=== PATIENT | female | born 1985 | race Caucasian/White ===

== ENCOUNTER 2019-06-07 10:39 | Outpatient (CLI) | payer OTHER, SELFPAY ==
--- NOTE | ~2019-06-07 | XR_ITS ---
XR knee LT 3V DATE: 06/07/2019 10:58 INDICATION: Left knee pain, no trauma. TECHNIQUE: 3 views COMPARISON: None FINDINGS: Mild to moderate suprapatellar knee joint effusion is suggested. No fracture or dislocation , periosteal reaction or bone destruction is evident. The knee joint spaces are preserved. No radiopa que intra-articular loose body or chondrocalcinosis. IMPRESSION: Knee joint effusion Reviewed, dictated and finalized at location B. A SAMPLER IMPRESSION: Knee joint effusion
== END 2019-06-07 10:40 | disposition home or self-care (01) ==
LOC: ANHIMG 10:44
PROVIDERS: PCP Physician Assistant; Visit Provider Physician Assistant
DX: M25.462 Effusion, left knee (principal)
CPT/HCPCS: 73562

== ENCOUNTER 2019-06-10 10:50 | Outpatient (CLI) | payer OTHER, SELFPAY ==
--- NOTE | ~2019-06-10 | MR_ITS ---
EXAMINATION: MR knee LT wo con DATE: 06/10/2019 11:39 INDICATION: Left knee pain. TECHNIQUE: Magnetic resonance imaging (MRI) of the left knee was performed without intravenous contra st. Sequences included axial PD-weighted FS FSE, coronal PD-weighted FSE and PD-weighted FS FSE, sagi ttal PD-weighted FSE, and sagittal T2-weighted FS FSE. COMPARISON: Left knee radiographs 06/07/2019 FINDINGS: Medial compartment: Medial meniscus is normal. There is shallow partial-thickness cartilage loss of femoral condyle invol ving the central and lateral articular surface. There is cartilage surface regularity of tibial condy le. Lateral compartment: Lateral meniscus is normal. Lateral compartment cartilage is normal. Patellofemoral compartment: There is shallow partial-thickness cartilage loss of patellar medial facet, median ridge, and lateral facet. Trochlear cartilage is normal. Ligaments and tendons: Anterior and posterior cruciate ligaments are normal. Medial collateral ligament is intact. There are changes of prior sprain of fibular collateral ligament characterized by thickening and increased sig nal intensity proximally. There is mild patellar tendinopathy. Fluid: There is a small knee joint effusion. There is trace fluid in a Gloria's cyst. There is mild superfici al infrapatellar bursitis. IMPRESSION: 1. Mild chondrosis of medial and patellofemoral compartments. 2. Small knee joint effusion. Reviewed, dictated and finalized at location A. [employer] ASSURANCE GROUP LEADER
== END 2019-06-10 10:51 | disposition home or self-care (01) ==
PROVIDERS: PCP Physician Assistant; Visit Provider Physician Assistant
DX: M25.562 Pain in left knee (principal); M22.2X2 Patellofemoral disorders, left knee; M25.462 Effusion, left knee
CPT/HCPCS: 73721

== ENCOUNTER 2019-07-06 08:56 | Outpatient (RCR) | payer OTHER, SELFPAY ==
--- NOTE | 2019-07-06 10:02 | PTOPEVAL ---
PHYSICAL THERAPY EVALUATION AND PLAN OF CARE 07-06-2019 The PT evaluation was completed for L knee patella-femoral chondromalacia and the plan of treatment is 1-2 x/week for 5 weeks. Thank you for referring Yaquelin to [facility]. Please review, sign, date and return this plan of care [facility]. I agree with and certify that the following plan of care is medically necessary. Referring Physician Date Attending Provider: Dieter Mora MD *PT Outpatient Evaluation Start: 07/06/19 09:08 Document 07/06/19 09:05 CLEM (Rec: 07/06/19 10:00 CLEM [email or web address]) Neurological History Hx Neurological Disorders No Significant History Cardiovascular History Hx Cardiac Disorders No Significant History Respiratory History Hx Respiratory Disorders No Significant History Gastrointestinal History Hx Other Gastrointestinal Disorders Yes: gall bladder removed Genitourinary History Hx Genitourinary Disorders No Significant History Musculoskeletal History Hx Other Musculoskeletal Disorders Yes: sprained ankle L;L knee sprain as child;L hip pain~1 yr ago Endocrine History Hx Endocrine Disorders No Significant History HEENT History Hx HEENT Disorders No Significant History Reproductive History Hx Tubal Ligation Yes Hx Other Reproductive Disorders Yes: 3 c sections Evaluation Information Problem Diagnosis L knee patella femoral chondromalacia Onset Jun 05, 2019 Subjective Information woke up in morning, knee Query Text:As Reported By Patient/ swollen,could not bend it or Family put wt on it; rested knee, wore velcro strap brace, saw dr, had x ray and MRI, saw ortho dr; pain is less, moving better; went snow skiing last week with knee brace; Diagnostic Tests X-Rays For This Problem Yes MRI For This Problem Yes-mild infrapatellar bursitis,lig intact, chondromalacia of patella Previous Treatments Previous Treatments For This Problem no PT for knee Prior Level of Function Activity Level (Last 3 Months) Occupation RN at hospital, labor/excavator, wear lead vest, move pt;no restrictions for work Activity of Daily Living Ability Independent Indoor/Home Mobility Independent Community Mobility Independent Stairs Ability Independent Functional Cognition (Planning, Shopping Independent , Taking Medications) Cooking Yes Cleaning Yes Laundry
--- NOTE | 2019-07-13 14:02 | PCPTNOTE ---
Patient did not show up for scheduled appointment this date.
--- NOTE | 2019-07-20 09:38 | PCPTNOTE ---
Patient did not show up for scheduled appointment this date voicemail left 07/20/2019 at 9:38am reminding patient about next appointment and if needing to reschedule to call facility.
--- NOTE | 2019-07-27 09:34 | PCPTNOTE ---
Patient did not show up for scheduled appointment this date. Notified PT on patient's third no show per attendance policy.
--- NOTE | 2019-07-27 15:57 | PCPTNOTE ---
called pt and left her a voice message at [phone]: to inform her that PT canceled 2 appointments due to her not showing for treatment. And for her to call if any questions/concerns.
--- NOTE | 2019-08-03 15:46 | PCPTNOTE ---
PHYSICAL THERAPY DISCHARGE 08-03-2019 Attending Provider: Dieter Mora MD Patient:Yaquelin Laird Date of :1985 Ms. Laird has not returned for any further treatments since the initial PT evaluation on 07/06/2019, for the diagnosis of L patella femoral pain. She did not show for 3 scheduled appointments, therefore she will be discharged at this time. The goals were not addressed. Thank you for referring Yaquelin to [facility]. Please review, sign, date and return this discharge summary [facility]. I have been updated about the patient's current status and I agree with discharge from the above service at this time. Referring Physician Date
== END 2019-08-04 08:43 | disposition home or self-care (01) ==
LOC: ANHPT 08:56
PROVIDERS: PCP Physician Assistant; Visit Provider Orthopaedic Surgery
DX: M22.42 Chondromalacia patellae, left knee (principal)
CPT/HCPCS: 97110; 97161

== ENCOUNTER 2022-03-27 19:18 | Emergency (ER) | payer BC, SELFPAY ==
--- NOTE | ~2022-03-27 | XR_ITS ---
XR foot RT min 3V 03/27/2022 19:40 INDICATION: Right foot pain PROCEDURE: 4 views right foot COMPARISON: No prior studies for comparison. FINDINGS: Fracture, dislocation or subluxation is not identified. Lisfranc joint intact. The soft tis sues appear within normal limits. No foreign bodies are identified. IMPRESSION: 1: NO ACUTE BONE OR JOINT ABNORMALITY IDENTIFIED. Reviewed, dictated and finalized at location A. BUSINESS INTELLIGENCE CONSULTANT
[2022-03-27 19:29] VITALS: BP 148/94; PULSE 81; RESP 18; TEMP 36.2; O2SAT 100
--- NOTE | 2022-03-27 19:52 | ED.LOWEXIN ---
HPI - Extremity Injury (Lower) General Chief Complaint: Extremity Injury, Lower Stated Complaint: Rt Foot Pain Source: patient Mode of arrival: ambulatory History of Present Illness HPI Narrative: This is a 36-year-old female who presented to our urgent care with complaints of pain to her right 4th and 5th toe status post trauma. According to patient she was playing with her dogs his stump 3rd toe. Patient notes that her toe has discoloration and she has pain with movement. The patient denies SOB, CP, palpitation, extremity numbness, lightheadedness, dizziness, constipation, diarrhea, chills, or fever, negative for neurovascular deficiency, pedal pulses present, and capillary refill within normal limit, Related Data Allergies Allergy/AdvReac Type Severity Reaction Status Date / Time nickel Allergy Mild rash Verified 03/27/22 19:29 Review of Systems Review of Systems: A 14 organ system Review of Systems was performed and pertinent positives included in the HPI, otherwise remaining ROS is negative. [facility] Past Medical History Medical History (Updated 03/27/22 @ 19:58 by MAGDIEL Wallace) Chondromalacia of left patellofemoral joint Knee effusion, left Surgical History Surgical History H/O prior ablation treatment Family History Family History Mother Diabetes mellitus Father Family history of liver disease Other Hypertension Social History Social History Smoking status: Never smoker Second hand tobacco smoke exposure: No Alcohol intake: current Exam Narrative: GENERAL: This is a well-nourished, well-developed patient, in no apparent distress. HEAD: normocephalic, atraumatic. EYES: PERRL. Sclera clear/white. Vision is grossly intact. EARS: External ears normal, auditory canals clear and without drainage, TMs normal without perforation. Hearing grossly intact. NOSE: External nose normal with no obvious nasal discharge, nares without redness, no rhinorrhea. THROAT: Mucous membranes moist, posterior pharynx clear. NECK: Neck supple, non-tender without lymphadenopathy, masses or thyromegaly. CARDIOVASCULAR: Regular rate and rhythm without murmurs, gallops, or rubs. RESPIRATORY: Clear to auscultation. Breath sounds equal bilaterally. No wheezes, rales, or rhonchi. GASTROINTESTINAL: Abdomen soft, non-tender, nondistended. Bowel sounds are active. No hepato-splenomegaly, or palpable masses. No guarding. SKIN: warm, intact with no suspicious lesions or rash, good texture and turgor. NEURO: awake, alert, and oriented to person, place and time. There were no obvious focal neurologic abnormalities. EXTREMITIES: Normal range of motion. No edema. No calf tenderness. Right 3rd and 4th toe with discoloration slight discomfort with movement, pedal pulses present, capillary refill within normal limits no neurovascular deficiency. Course Course Level of Care: Express Care Visit Vital Signs Vital signs: Vital Signs Temperature 97.1 F L 03/27/22 19:29 Pulse Rate 81 03/27/22 19:29 Respiratory Rate 18 03/27/22 19:29 Blood Pressure 148/94 H 03/27/22 19:29 Pulse Oximetry 100 03/27/22 19:29 Oxygen Delivery Room Air 03/27/22 19:29 Temperature 97.1 F L 03/27/22 19:29 Pulse Rate 81 03/27/22 19:29 Respiratory Rate 18 03/27/22 19:29 Blood Pressure 148/94 H 03/27/22 19:29 Pulse Oximetry 100 03/27/22 19:29 Oxygen Delivery Room Air 03/27/22 19:29 Discharge Plan Discharge Clinical Impression: Injury of toe Patient Disposition: Home, Self-Care Condition: Stable Instructions: Antibiotic Form, P.R.I.C.E. Treatment (ED) Prescriptions: New hydrocodone-acetaminophen 5-325 mg tablet 1 tablet PO Q8H PRN (Reason: pain) Qty: 10 0RF Follow-up/Referrals: PHYSICIAN,MATERIAL DAMAGE APPRAISER [Primary Care Provider] -
== END 2022-03-27 20:06 | disposition home or self-care (01) ==
PROVIDERS: Emergency Provider Nurse Practitioner
DX: S99.921A Unspecified injury of right foot, initial encounter (principal); X58.XXXA Exposure to other specified factors, initial encounter
CPT/HCPCS: 73630; 99213; G0463

== ENCOUNTER 2025-03-03 07:26 | Outpatient (CLI) | payer OTHER, SELFPAY ==
[2025-03-03 07:56] LABS: Hematocrit 36.2 % (37.0-47.0); Hemoglobin 12.2 g/dL (12.0-15.0); Immature Granulocyte Percent A 0.3 % (0-0.5); Lymphocytes Absolute Auto 1.21 K/mm3 (0.9-3.2); Mean Corpuscular HGB Conc 33.7 g/dl (32-36); Mean Corpuscular Hemoglobin 27.2 pg (26-34); Mean Corpuscular Volume 80.6 fl (80-100); Nucleated Red Blood Cells Absolute Auto 0.000 K/mm3 (0.0-0.012); Nucleated Red Blood Cells Perc 0.0 % (0.0-0.2); Platelet Count Result 261 k/mm3 (150-375); Red Blood Count 4.49 M/mm3 (4.2-5.4); White Blood Count 5.9 K/mm3 (4.5-10.0)
[2025-03-03 08:13] LABS: Hemoglobin A1C 4.9 % (<5.7)
[2025-03-03 08:15] LABS: Alanine Aminotransferase 21 U/L (6-35); Albumin Level 4.4 g/dL (3.5-5.1); Alkaline Phosphatase 72 U/L (38-126); Anion Gap 8 mmol/L (4-12); Aspartate Amino Transferase 22 U/L (14-36); Bilirubin,Total 0.5 mg/dL (0.2-1.3); Blood Urea Nitrogen 11 mg/dL (7-17); Calcium 8.9 mg/dL (8.4-10.2); Carbon Dioxide 24 mmol/L (22-30); Chloride 103 mmol/L (98-107); Cholesterol 201 mg/dL (0-200); Estimated Glomerular Filt Rate > 60; Glucose 101 mg/dL (65-110); HDL Direct 54 mg/dL; Potassium 4.1 mmol/L (3.4-5.0); Sodium 135 mmol/L (137-145); Total Protein 7.3 g/dL (6.3-8.2); Triglycerides 212 mg/dL (<150)
[2025-03-03 08:51] LABS: Thyroid Stimulating Hormone 2.470 uIU/mL (0.465-4.680)
[2025-03-03 10:26] LABS: MALB Creatinine Ratio 4.0 mg/g (0-30)
== END 2025-03-03 07:27 | disposition home or self-care (01) ==
PROVIDERS: PCP Clinical Nurse Specialist; Visit Provider Clinical Nurse Specialist
DX: Z13.29 Encounter for screening for other suspected endocrine disorder (principal); Z13.220 Encounter for screening for lipoid disorders; I10 Essential (primary) hypertension; R73.01 Impaired fasting glucose; E55.9 Vitamin D deficiency, unspecified
CPT/HCPCS: 36415; 80053; 80061; 82043; 82306; 83036; 84443; 85025